=== PATIENT | female | born 1955 | race Caucasian/White ===

== ENCOUNTER 2017-04-22 16:19 | Emergency (ER) | payer BC ==
[2017-04-22] MEDS ORDERED: LIDOCAINE/EPI 2% 1:100,000 20 ML VIAL ONE (16:40)
[2017-04-22] MEDS ORDERED: BACITRACIN 1 APP/PKT PKT TOPICAL ONE (17:05)
[2017-04-22] MEDS ORDERED: cloNIDine HCL 0.1 MG TABLET PO ONE (17:21)
--- NOTE | 2017-04-22 17:57 | ER NURSING DOCUMENTATION ---
Nurse's Notes [facility] Name:Prema Gomes Age:62 yrs Sex:Female :1955 Arrival Date:04/22/2017 Time:16:15 Bed1 Private MD: Diagnosis:Facial Laceration-: 2 cm total; Simple Closure (by MD) Presentation: 04/22 16:21 Presenting complaint: Patient states: Pt tripped and fell while in a hurry. Landed on tg left face. Transition of care: patient was not received from another setting of care. Mechanism of Injury: resulted from a fall. 16:21 Method Of Arrival: Private Vehicle tg 16:21 Acuity: NIK 4 tg Triage Assessment: 16:24 General: Appears uncomfortable, Behavior is anxious. Pain: Complains of pain in left tg cheek and left eyebrow. Neuro: Level of Consciousness is awake, alert, Denies blurred vision dizziness, headache. Respiratory: Respiratory effort is even, unlabored. Derm: Skin is pink, warm & dry. Historical: - Allergies: No known drug Allergies; - Home Meds: 1. Lasix Oral 2. KCL - PMHx: EDEMA; - PSHx: TUBAL LIGATION; - Tetanus: < 10 years. - Ebola Screening: : Patient negative for fever greater than or equal to 101.5 degrees Fahrenheit, and additional compatible Ebola Virus Disease symptoms. Patient denies exposure to infectious person. Patient denies travel to an Ebola-affected area in the 21 days before illness onset. No symptoms or risks identified at this time. . - Immunization history: Flu Vaccine unknown. - Social history: Smoking status: Patient states was never smoker of tobacco. Screenin:25 Infectious Disease Risk Unable to Obtain. Abuse screen: Denies threats or abuse. Denies tg injuries from another. 16:27 Nutritional screening: No deficits noted. tg Assessment: 17:41 Reassessment: Patient states feeling better. Patient states symptoms have improved. tg Patient appears in no apparent distress at this time. Dr. Fuller aware of BP, pt ok to discharge. . Vital Signs: 16:20 BP 221 / 102; Pulse 85; Resp 20; Temp 98.4(O); Pulse Ox 93% on R/A; Weight 108.86 kg arc (R); Height 5 ft. 8 in. (172.72 cm) (R); Pain 2/10; 16:29 BP 205 / 110 (auto/); tg 17:04 BP 208 / 100 (auto/); tg 17:07 Pulse Ox 93% ; tg 17:24 BP 202 / 110 (auto/); tg 17:32 Pulse Ox 93% ; tg 17:36 BP 207 / 113 (auto/); tg 16:20 Body Mass Index 36.49 (108.86 kg, 172.72 cm) arc Maryann Coma Score: 16:20 Eye Response: spontaneous(4). Verbal Response: oriented(5). Motor Response: obeys cd commands(6). Total: 15. 16:21 Eye Response: spontaneous(4). Verbal Response: oriented(5). Motor Response: obeys tg commands(6). Total: 15. 16:25 Eye Response: spontaneous(4). Verbal Response: oriented(5). Motor Response: obeys cd commands(6). Total: 15. 17:00 Eye Response: spontaneous(4). Verbal Response: oriented(5). Motor Response: obeys cd commands(6). Total: 15. Trauma Score (Adult): 17:41 Eye Response: spontaneous(1); Verbal Response: oriented(1); Motor Response: obeys tg commands(2); Systolic BP: > 89 mm Hg(4); Respiratory Rate: 10 to 29 per min(4); [place] Score: 15; Trauma Score: 12 ED Course: 16:15 Patient arrived in ED. em3 16:21 Bam Hercules, MARSHAL is Primary Nurse. tg 16:21 Sidney Fuller MD is Attending Physician. cd 16:22 Triage completed. tg 16:25 Arm band placed on. tg 16:27 Valuables Remains with patient. tg 16:40 Assist Provider Assist provider with laceration repair on left eyebrow that was 2.5 cm. tg or less using sutures. Set up tray. Performed by Sidney Fuller MD Dressed with band aid, Patient tolerated well. Administered Medications: 16:39 Drug: Lidocaine-Epinephrine -2 % (1:100,000) 10 ml; Route: Infiltration; tg 17:09 Follow up: Response: administered by dr. Fuller tg 17:06 Drug: Bacitracin Ointment (500 unit/g) 1 application; Route: Topical; Site: affected tg area; 17:09 Follow up: Response: No adverse reaction tg 17:09 Drug: cloNIDine 0.1 mg; Route: PO; tg 17:40 Follow up: Response: No adverse reaction tg Outcome: 17:02 Discharge ordered by . kanika 17:04 Discharged to home ambulatory. tg 17:04 Condition: stable 17:04 Discharge Assessment: Patient awake, alert and oriented x 3. No cognitive and/or functional deficits noted. Patient verbalized understanding of disposition instructions. 17:04 Instructed on discharge instructions, follow up and referral plans. medication usage. 17:56 Patient left the ED. tg 04/23 09:49 Discharge F/U Call: Unable to reach: no answer lp Signatures: Bam Hercules RN RN Tosha Bolton RN RN lp Sidney Fuller MD MD cd Meiklejohn, Eric 3 Inez Anthony, Claudio Reg arc
--- NOTE | 2017-04-22 17:57 | ER PHYSICIAN DOCUMENTATION ---
Physician Documentation [facility] Name:Prema Gomes Age:62 yrs Sex:Female :1955 Arrival Date:04/22/2017 Time:16:15 Bed1 Private MD: Sidney Bell Disposition: 04/22 17:10 Chart complete. cd Disposition: 04/22/17 17:02 Discharged to Home/Self Care. Impression: Facial Laceration - : 2 cm total; Simple Closure (by MD). - Condition is Good. - Discharge Instructions: LACERATION, Face (suture or tape). - Medical Reconciliation form form. - Follow up: Private Physician; When: 04/27/2017; Reason: Recheck today's complaints, Continuance of care, Staple/Suture removal. - Problem is new. - Symptoms have improved. - Notes: Bacitracin Ointment to wouns every day after cleaning with 1/2 water; 1/2 hydrogen peroxide.... for the first three days..... Then clean and dry thereafter..... Sutures out in 5 days on April 27, 2017. Ice packs to left eyebrow for the first 24 hours. Return to the closest ER if severe headache, vomiting, confusion, or any neurologic symptoms arise. Take Tylenol for pain. HPI: 16:20 This 62 yrs old Female presents to ER via Private Vehicle with complaints of cd Head Injury-Adult. 16:20 The patient or guardian reports a laceration, 2 cm(s), clean, simple, swelling, cd contusion. The complaints affect the outer aspect of left eyebrow and left supraorbital ridge. Context of injury: The problem was sustained outdoors, resulted from a fall, while walking, tripped on the curb. Onset: The symptom(s)/episode began/occurred acutely, just prior to arrival. Associated signs and symptoms: Loss of consciousness: This patient did not experience any loss of consciousness. Pertinent negatives: patient denies any alcohol consumption, dazed, headache, nausea, neck pain, vomiting. Severity of symptoms: At their worst the symptoms were mild, in the emergency department the symptoms are unchanged. Intracranial bleed risk factors: age over 60. The patient has not experienced similar symptoms in the past. The patient has not recently seen a physician. Historical: - Allergies: No known drug Allergies; - Home Meds: 1. Lasix Oral 2. KCL - PMHx: EDEMA; - PSHx: TUBAL LIGATION; - Tetanus: < 10 years. - Ebola Screening: : Patient negative for fever greater than or equal to 101.5 degrees Fahrenheit, and additional compatible Ebola Virus Disease symptoms. Patient denies exposure to infectious person. Patient denies travel to an Ebola-affected area in the 21 days before illness onset. No symptoms or risks identified at this time. . - Immunization history: Flu Vaccine unknown. - Social history: Smoking status: Patient states was never smoker of tobacco. ROS: 16:25 Cardiovascular: Negative for chest pain, palpitations, edema and pleuritic pain. cd Respiratory: Negative for shortness of breath, dyspnea on exertion, cough, sputum production, wheezing, hemoptysis and pleuritic chest pain. Abdomen/GI: Negative for abdominal pain, nausea, vomiting, diarrhea, constipation, distension, melena, hematochezia and hematemesis. Back: Negative for injury, pain or muscle spasms. MS/Extremity: Negative for injury, deformity, edema, calf tenderness, pain or coldness. 16:25 Neuro: Negative for headache, weakness, numbness, tingling, and seizure. cd 16:25 Constitutional: Negative for poor PO intake. 16:25 Eyes: Positive for injury or acute deformity, Negative for blurry vision, visual disturbance, vision loss. 16:25 ENT: Negative for injury or acute deformity. 16:25 Neck: Negative for pain with movement, pain at rest, bony tenderness. 16:25 Skin: Positive for laceration(s), of the left supraorbital ridge and outer aspect of left eyebrow. 16:25 Neuro: Negative for altered mental status, headache, loss of consciousness, seizure activity, syncope, near syncope, tingling, visual changes, weakness. 16:25 All other systems are negative. Exam: Chest/axilla: Normal chest wall appearance and motion. Nontender with no deformity. No lesions are appreciated. Cardiovascular: Regular rate and rhythm with a normal S1 and S2. No gallops, murmurs, or rubs. Normal PMI, no JVD. No pulse deficits. Respiratory: Lungs have equal breath sounds bilaterally, clear to auscultation and percussion. No rales, rhonchi or wheezes noted. No increased work of breathing, no retractions or nasal flaring. Abdomen/GI: Soft, non-tender, with normal bowel sounds. No distension or tympany. No guarding or rebound. No evidence of tenderness throughout. Back: No spinal tenderness. No costovertebral tenderness. Full range of motion. MS/ Extremity: Pulses equal, no cyanosis. Neurovascular intact. Full, normal range of motion. 16:25 Neuro: Awake and alert, GCS 15, oriented to person, place, time, and situation. cd Cranial nerves II-XII grossly intact. Motor strength 5/5 in all extremities. Sensory grossly intact. Cerebellar exam normal. Normal gait. 16:25 Constitutional: The patient appears alert, awake, anxious. 16:25 Head/face: Noted is a laceration(s), that is linear, 2 cm(s), of the left supraorbital ridge and outer aspect of left eyebrow, swelling, Basilar skull fracture findings: the patient does not have obvious signs of a basilar skull fracture, no Bettencourt signs, no hemotympanum, no nasal drainage, no racoon eyes. 16:25 Eyes: Pupils: equal, round, and reactive to light and accomodation, Extraocular movements: intact throughout. 16:25 ENT: Exam is negative for acute changes. 16:25 Neck: C-spine: Nexus Criteria: Nexus criteria: no cervical midline tenderness, patient is not intoxicated, mental status is normal, no focal/neurologic deficits, and no painful distracting injuries are present, vertebral tenderness, is not appreciated. 16:25 Neuro: Orientation: is normal, Mentation: is normal, Memory: is normal, Cranial nerves: CN II- XII are normal as tested, Motor: moves all fours, Sensation: is normal, Gait: is steady. Vital Signs: 16:20 BP 221 / 102; Pulse 85; Resp 20; Temp 98.4(O); Pulse Ox 93% on R/A; Weight 108.86 kg arc (R); Height 5 ft. 8 in. (172.72 cm) (R); Pain 2/10; 16:29 BP 205 / 110 (auto/); tg 17:04 BP 208 / 100 (auto/); tg 17:07 Pulse Ox 93% ; tg 17:24 BP 202 / 110 (auto/); tg 17:32 Pulse Ox 93% ; tg 17:36 BP 207 / 113 (auto/); tg 16:20 Body Mass Index 36.49 (108.86 kg, 172.72 cm) arc [place] Coma Score: 16:20 Eye Response: spontaneous(4). Verbal Response: oriented(5). Motor Response: obeys cd commands(6). Total: 15. 16:21 Eye Response: spontaneous(4). Verbal Response: oriented(5). Motor Response: obeys tg commands(6). Total: 15. 16:25 Eye Response: spontaneous(4). Verbal Response: oriented(5). Motor Response: obeys cd commands(6). Total: 15. 17:00 Eye Response: spontaneous(4). Verbal Response: oriented(5). Motor Response: obeys cd commands(6). Total: 15. Trauma Score (Adult): 17:41 Eye Response: spontaneous(1); Verbal Response: oriented(1); Motor Response: obeys tg commands(2); Systolic BP: > 89 mm Hg(4); Respiratory Rate: 10 to 29 per min(4); Maryann Score: 15; Trauma Score: 12 Laceration: 16:25 Wound Repair of 2cm ( 0.8in ) subcutaneous laceration to left supraorbital ridge and cd outer aspect of left eyebrow. Linear shaped.. Minimal contamination.. Hemostasis noted.. Distal neuro/vascular/tendon intact. Anesthesia: Local anesthetic administered with 2 mls of 2% lidocaine w/ Epi. Wound prep: Moderate cleansing with hibiclenz. Skin closed with 20 6-0 Prolene using Running sutures. Dressed with Bacitracin. Patient tolerated well. MDM: 16:15 Differential diagnosis: Contusion of Laceration of Intracranial bleed- Concussion cd cerebral contusion. 16:21 Patient medically screened. cd 17:00 Neurological re-evaluation: normal neurological exam including cranial nerves, cd orientation, mentation, motor and sensory exam, cerebellar testing, GCS normal, and normal gait. Data reviewed: vital signs, nurses notes, old medical records, and as a result, I will discharge patient. Data interpreted: Pulse oximetry: on room air is 93 %. Interpretation: normal. 17:10 Counseling: I had a detailed discussion with the patient and/or guardian regarding: the cd historical points, exam findings, and any diagnostic results supporting the discharge/admit diagnosis, the need for outpatient follow up, for a recheck, with the patient's primary care provider, to return to the emergency department if symptoms worsen or persist or if there are any questions or concerns that arise at home. Response to treatment: the patient's symptoms have markedly improved after treatment, the patient's condition has returned to base line, the patient is now symptom free, and as a result, I will discharge patient. 04/22 16:29 Order name: Ice Packs; Complete Time: 16:39 tg Dispensed Medications: 16:39 Drug: Lidocaine-Epinephrine -2 % (1:100,000) 10 ml; Route: Infiltration; tg 17:09 Follow up: Response: administered by dr. Fuller tg 17:06 Drug: Bacitracin Ointment (500 unit/g) 1 application; Route: Topical; Site: affected tg area; 17:09 Follow up: Response: No adverse reaction tg 17:09 Drug: cloNIDine 0.1 mg; Route: PO; tg 17:40 Follow up: Response: No adverse reaction tg Signatures: Bam Hercules, RN RN tg Sidney Fuller MD MD cd
== END 2017-04-22 17:57 | disposition home or self-care (01) ==
LOC: ER 16:19
DX: S01.112A Laceration without foreign body of left eyelid and periocular area, initial encounter (principal); W10.1XXA Fall (on)(from) sidewalk curb, initial encounter; Y92.480 Sidewalk as the place of occurrence of the external cause; Y93.01 Activity, walking, marching and hiking
CPT/HCPCS: 12011; 99283